=== PATIENT | female | born 1975 | race Caucasian/White ===

== ENCOUNTER 2016-07-01 10:05 | Emergency (ER) | payer MEDICAID, OTHER ==
[~2016-07-01] VITALS: Ht 165.1 cm; Wt 70.0 kg
[~2016-07-01 10:05] MED LIST: IBUP800 PO; PERC5TAB12 PO; PREN0.01; SENN1TAB11 PO; ZOVI200C24
[2016-07-01 10:07] VITALS: BP 181/86; PULSE 15; PULSE 84; RESP 15; TEMP 98.2; O2SAT 99
[2016-07-01 10:20] VITALS: BP 168/93; PULSE 101; PULSE 104; RESP 16; TEMP 98.2; O2SAT 96
[2016-07-01] MEDS ORDERED: SODIUM CHLOR 0.9% 1000 ML INJ 1,000 ML IV SCH (10:21)
[2016-07-01 10:24] LABS: MEAN CORPUSCULAR HGB CONC 36.3 % (32.0-36.0)
--- NOTE | 2016-07-01 10:28 | PD ---
HPI Chief Complaint: Flank/Kidney Pain Time Seen by Provider: 10:11 Travel History International Travel<30 days: No Contact w/Intl Traveler<30days: No Traveled to known affect area: No History of Present Illness HPI 41-year-old female complains of right flank pain and right-sided abdominal pain. Patient states that the pain started about several weeks ago. Patient states that the pain has been intermittent however becomes more constant more severe recently. Patient states that she has intermittent nausea vomiting. Patient states that she has poor appetite for the past few weeks. Patient denies any fever. Patient states that she feeling hot and chills. Patient denies any dysuria or frequency. Patient denies any vaginal discharge. Patient 's on her menstruation period now. Patient states that she has UTI symptom 2 weeks ago and she took [id number] as Azo for that. On a scale of 1-10 the pain is a 9. PFSH Past Medical History Diminished Hearing: No Genitourinary: Yes (UTI) Tetanus Vaccination: Unknown Influenza Vaccination: No ?: Not LMP: 05/2016 : 2 Para: 2 Miscarriage: 0 : 0 Past Surgical History Surgical History: No Previous Surgery Social History Alcohol Use: No Tobacco Use: No Substance Use: No Allergies-Medications (Allergen,Severity, Reaction): Coded Allergies: No Known Allergies (Verified , 07/01/16) Reported Meds & Prescriptions Reported Meds & Active Scripts Active Review of Systems General / Constitutional: Positive: Chills, No: Fever Eyes: No: Visual changes HENT: No: Headaches Cardiovascular: No: Chest Pain or Discomfort Respiratory: No: Shortness of Breath Gastrointestinal: Positive: Nausea, Vomiting, Abdominal Pain Genitourinary: No: Dysuria Musculoskeletal: No: Pain Skin: No Rash Neurologic: No: Weakness Psychiatric: No: Depression Endocrine: No: Polydipsia Hematologic/Lymphatic: No: Easy Bruising Physical Exam Narrative GENERAL: Well-nourished, well-developed patient. SKIN: Warm and dry. HEAD: Normocephalic. EYES: No scleral icterus. No injection or drainage. NECK: Supple, trachea midline. No JVD or lymphadenopathy. CARDIOVASCULAR: Regular rate and rhythm without murmurs, gallops, or rubs. RESPIRATORY: Breath sounds equal bilaterally. No accessory muscle use. GASTROINTESTINAL: Abdomen soft, nondistended. Patient has moderate tenderness on palpation right upper quadrant, right mid abdomen and right low quadrant of the abdomen. No rebound tenderness. No mass. MUSCULOSKELETAL: No cyanosis, or edema. BACK: Patient has moderate tenderness on palpation right mid lumbar area, without obvious deformity. No CVA tenderness. Neurologic exam normal. Data Data Last Documented VS Vital Signs Date Time Temp Pulse Resp B/P Pulse Ox O2 Delivery O2 Flow Rate FiO2 07/01/16 10:20 98.2 104 16 168/93 96 Room Air Orders Complete Blood Count With Diff (07/01/16 10:21) Comprehensive Metabolic Panel (07/01/16 10:21) Lipase (07/01/16 10:21) Prothrombin Time / Inr (Pt) (07/01/16 10:21) Act Partial Throm Time (Ptt) (07/01/16 10:21) Urinalysis - C+S If Indicated (07/01/16 10:21) Ct Abd/Pel W Iv Contrast(Rout) (07/01/16 10:21) Iv Access Insert/Monitor (07/01/16 10:21) Ecg Monitoring (07/01/16 10:21) Oximetry (07/01/16 10:21) Morphine Inj (Morphine Inj) (07/01/16 10:30) Ondansetron Inj (Zofran Inj) (07/01/16 10:30) Pantoprazole Inj (Protonix Inj) (07/01/16 10:30) Sodium Chlor 0.9% 1000 Ml Inj (Ns 1000 M (07/01/16 10:21) Sodium Chloride 0.9% Flush (Ns Flush) (07/01/16 10:30) Ed Urine Pregnancytest Poc (07/01/16 10:21) Iohexol 350 Inj (Omnipaque 350 Inj) (07/01/16 11:59) Labs Laboratory Tests Test 07/01/16 07/01/16 10:25 11:15 White Blood Count 10.6 TH/MM3 Red Blood Count 4.80 MIL/MM3 Hemoglobin 14.5 GM/DL Hematocrit 40.1 % Mean Corpuscular Volume 83.5 FL Mean Corpuscular Hemoglobin 30.3 PG Mean Corpuscular Hemoglobin 36.3 % Concent Red Cell Distribution Width 14.1 % Platelet Count 306 TH/MM3 Mean Platelet Volume 8.1 FL Neutrophils (%) (Auto) 80.4 % Lymphocytes (%) (Auto) 14.6 % Monocytes (%) (Auto) 4.7 % Eosinophils (%) (Auto) 0.0 % Basophils (%) (Auto) 0.3 % Neutrophils # (Auto) 8.5 TH/MM3 Lymphocytes # (Auto) 1.5 TH/MM3 Monocytes # (Auto) 0.5 TH/MM3 Eosinophils # (Auto) 0.0 TH/MM3 Basophils # (Auto) 0.0 TH/MM3 CBC Comment AUTO DIFF Differential Comment AUTO DIFF CONFIRMED Prothrombin Time 11.4 SEC Prothromb Time International 1.0 RATIO Ratio Activated Partial 25.5 SEC Thromboplast Time Sodium Level 137 MEQ/L Potassium Level 3.7 MEQ/L Chloride Level 102 MEQ/L Carbon Dioxide Level 23.6 MEQ/L Anion Gap 11 MEQ/L Blood Urea Nitrogen 14 MG/DL Creatinine 0.91 MG/DL Estimat Glomerular Filtration 68 ML/MIN Rate Random Glucose 98 MG/DL Calcium Level 9.0 MG/DL Total Bilirubin 0.6 MG/DL Aspartate Amino Transf 7 U/L (AST/SGOT) Alanine Aminotransferase 13 U/L (ALT/SGPT) Alkaline Phosphatase 70 U/L Total Protein 8.3 GM/DL Albumin 4.5 GM/DL Lipase 94 U/L Urine Color LIGHT-YELLOW Urine Turbidity CLEAR Urine pH 5.5 Urine Specific [place] 1.005 Urine Protein TRACE mg/dL Urine Glucose (UA) NEG mg/dL Urine Ketones 40 mg/dL Urine Occult Blood MOD Urine Nitrite NEG Urine Bilirubin NEG Urine Urobilinogen LESS THAN 2.0 MG/DL Urine Leukocyte Esterase MOD Urine RBC 2 /hpf Urine WBC 8 /hpf Urine Squamous Epithelial 1 /hpf Cells Urine Mucus FEW /lpf Microscopic Urinalysis Comment CULT NOT INDICATED MDM Medical Decision Making Medical Screen Exam Complete: Yes Emergency Medical Condition: Yes Interpretation(s) 12:10 PM. CBC within normal limit. CMP within normal limit. UA positive for 8 WBC. 12:39 PM. Last Impressions Abdomen/Pelvis CT 07/01/16 1021 Signed Impressions: Service Date/Time: Friday, July 01, 2016 11:41 - CONCLUSION: 1. Hepatic hemangioma. 2. 13 mm calculus in the right renal pelvis with uroepithelial thickening likely inflammatory change from calculus. No significant obstruction. 3. Punctate nonobstructive calculus lower [place] right kidney measures 2 mm. Rory Farr MD Differential Diagnosis Differential diagnosis including musculoskeletal, cholecystitis, pancreatitis, colitis, UTI, pyelonephritis, nephrolithiasis, ovarian cyst, ovarian torsion, ectopic , appendicitis. Narrative Course 41-year-old female with right low back pain, right-sided abdominal pain. Normal saline solution 1 25 cc an hour. Morphine 2 mg IV. Zofran 4 mg IV. Protonix 40 mg IV. Diagnosis Primary Impression: Nephrolithiasis Patient Instructions: General Instructions Additional Instructions: Take medications as directed. Follow-up with urologist. Return if intractable pain, fever, persistent vomiting. Med/Other Pt SpecificInfo: Prescription(s) given Scripts Sulfamethoxazole-Trimethoprim (Bactrim DS)800-160 Mg Tab1 Tab PO BID #14 TAB Prov:Henry Villarreal MD 07/01/16 Tamsulosin (Flomax)0.4 Mg Cap0.4 Mg PO HS #14 CAP Ref 0 Prov:Henry Villarreal MD 07/01/16 Hydrocodone-Acetaminophen ([place])5-325 mg Tab1 Tab PO Q6H PRN (PAIN) #30 TAB Prov:Henry Villarreal MD 07/01/16 Disposition: 01 DISCHARGE HOME Condition: Stable Henry Villarreal MD Jul 01, 2016 10:28
[2016-07-01] MEDS ORDERED: PANTOPRAZOLE SODIUM 40 MG VIAL IVP ONE (10:30)
[2016-07-01] MEDS ORDERED: SODIUM CHLORIDE 0.9% FLUSH 5 ML FLUSH IVF PRN (10:30)
[2016-07-01] MEDS ORDERED: MORPHINE SULFATE 4 MG/ML INJ IV PUSH ONE (10:30)
[2016-07-01] MEDS ORDERED: ONDANSETRON HCL 4 MG/2 ML VIAL IVP ONE (10:30)
[2016-07-01 10:46] LABS: AUTOMATED NEUTROPHIL # 8.5 TH/MM3 (1.8-7.7); BASOPHIL % 0.3 % (0.0-2.0); HEMATOCRIT 40.1 % (35.0-46.0); LYMPH % 14.6 % (9.0-44.0); LYMPHOCYTE # 1.5 TH/MM3 (1.0-4.8); MEAN CELL VOLUME 83.5 FL (80.0-100.0); MEAN CORPUSCULAR HEMOGLOBIN 30.3 PG (27.0-34.0); MONO % 4.7 % (0.0-8.0); NEUT % 80.4 % (16.0-70.0); PLATELET COUNT 306 TH/MM3 (150-450); RED CELL DISTRIBUTION WIDTH 14.1 % (11.6-17.2); WHITE BLOOD COUNT 10.6 TH/MM3 (4.0-11.0)
[2016-07-01 10:48] LABS: HEMO FLAGS AUTO DIFF
[2016-07-01 10:52] LABS: APTT (PATIENT) 25.5 SEC (24.3-30.1); PROTHROMBIN TIME - PATIENT 11.4 SEC (9.8-11.6)
[2016-07-01 11:04] LABS: ALT (GPT) 13 U/L (10-53); ANION GAP 11 MEQ/L (5-15); AST (GOT) 7 U/L (15-37); BICARBONATE 23.6 MEQ/L (21.0-32.0); BLOOD UREA NITROGEN 14 MG/DL (7-18); CHLORIDE 102 MEQ/L (98-107); GLOMERULAR FILTRATION RATE 68 ML/MIN (>89); POTASSIUM 3.7 MEQ/L (3.5-5.1); SODIUM (NA) 137 MEQ/L (136-145)
[2016-07-01 11:06] LABS: ALKALINE PHOSPHATASE 70 U/L (45-117); TOTAL BILIRUBIN ADULT 0.6 MG/DL (0.2-1.0)
[2016-07-01 11:16] LABS: SCAN/DIFF AUTO DIFF CONFIRMED
[2016-07-01] MEDS ORDERED: IOHEXOL 350 MG/ML 10 ML VIAL (for RAD DIAG) IV ONE (11:59)
[2016-07-01 12:03] LABS: BLOOD, URINE MOD (NEG); GLUCOSE,URINE NEG (NEG); KETONE, URINE 40 mg/dL (NEG); MUCUS URINE FEW /lpf (OCC); NITRITE,URINE NEG (NEG); PH, URINE 5.5 (5.0-8.5); SQUAMOUS EPITHELIAL CELL URINE 1 /hpf (0-5); URINE COLOR LIGHT-YELLOW (YELLW/STRAW)
[2016-07-01 12:05] LABS: COMMENT (UR) CULT NOT INDICATED; CULTURE IF INDICATED CULT NOT INDICATED
--- NOTE | 2016-07-01 12:21 | RADRPT ---
EXAM DATE/TIME: 07/01/2016 11:41 [facility] COMPARISON: No previous studies available for comparison. INDICATIONS : Right upper abdominal pain that radiates to the right flank. IV CONTRAST: 90 cc Omnipaque 350 (iohexol) IV ORAL CONTRAST: No oral contrast ingested. RADIATION DOSE: 9.96 CTDIvol (mGy) MEDICAL HISTORY : None SURGICAL HISTORY : None. ENCOUNTER: Initial ACUITY: 2 weeks PAIN SCALE: 6/10 LOCATION: Right upper quadrant TECHNIQUE: Volumetric scanning of the abdomen and pelvis was performed. Using automated exposure control and ad justment of the mA and/or kV according to patient size, radiation dose was kept as low as reasonably achievable to obtain optimal diagnostic quality images. FINDINGS: LOWER LUNGS: The visualized lower lungs are clear. LIVER: Homogeneous density without dilation of the biliary tree. No calcified gallstones. Peripheral enhanc ing lesion in the liver measuring 3.4 cm likely meningioma. SPLEEN: Normal size without lesion. PANCREAS: Within normal limits. KIDNEYS: Normal in size and shape. There is no mass or hydronephrosis. A 13 mm calculus involving the right r enal pelvis. There is uroepithelial thickening in the renal pelvis. Punctate nonspecific calculus low er [place] right kidney measures 2 mm. ADRENAL GLANDS: Within normal limits. VASCULAR: There is no aortic aneurysm. BOWEL/MESENTERY: The stomach, small bowel, and colon demonstrate no acute abnormality. There is no free intraperitone al air or fluid. Appendix normal. ABDOMINAL WALL: Within normal limits. RETROPERITONEUM: There is no lymphadenopathy. BLADDER: No wall thickening or mass. REPRODUCTIVE: Within normal limits. INGUINAL: There is no lymphadenopathy or hernia. MUSCULOSKELETAL: Within normal limits for patient age. CONCLUSION: 1. Hepatic hemangioma. 2. 13 mm calculus in the right renal pelvis with uroepithelial thickening likely inflammatory change from calculus. No significant obstruction. 3. Punctate nonobstructive calculus lower Pole right kidney measures 2 mm. Rory Farr MD on July 01, 2016 at 12:17 Board Certified Radiologist. This report was verified electronically.
[2016-07-01] MEDS ORDERED: TAMS5CAP PO (12:55)
[2016-07-01] MEDS ORDERED: NORC5TAB PO (12:55)
[2016-07-01] MEDS ORDERED: BACT800T5 PO (12:56)
[2016-08-16] MEDS ORDERED: HYDR-3533 PO (13:56)
[2016-08-16] MEDS ORDERED: ZOFR4TAB3 SL (13:56)
[2016-09-05] MEDS ORDERED: ZOFR4TAB3 SL (15:33)
[2016-09-05] MEDS ORDERED: HYDR-3533 PO (15:33)
[2016-09-14] MEDS ORDERED: HYDR-3533 PO (16:06)
== END 2016-07-01 13:01 | disposition home or self-care (01) ==
LOC: NEPA 10:05
DX: N20.0 Calculus of kidney (principal)
CPT/HCPCS: 74177; 80053; 81001; 83690; 84703; 85025; 85610; 85730; 96361; 96374; 96375; 99284; C9113; J2270; J2405; J7030; Q9967

== ENCOUNTER 2016-07-19 10:08 | Emergency (ER) | payer MEDICAID, OTHER ==
[~2016-07-19] VITALS: Ht 165.1 cm; Wt 68.2 kg
[~2016-07-19 10:08] MED LIST changes: +BACT800T5 PO; -IBUP800 PO; +NORC5TAB PO; -PERC5TAB12 PO; -PREN0.01; -SENN1TAB11 PO; +TAMS5CAP PO; -ZOVI200C24
[2016-07-19 10:11] VITALS: BP 156/88; PULSE 96; RESP 16; TEMP 97.8; O2SAT 97
[2016-07-19] MEDS ORDERED: KETOROLAC TROMETHAMINE 30 MG/ML (IVP) VIAL IVP ONE (11:00)
[2016-07-19] MEDS ORDERED: SODIUM CHLORIDE 0.9% FLUSH 5 ML FLUSH IVF PRN (11:00)
[2016-07-19] MEDS ORDERED: MORPHINE SULFATE 4 MG/ML INJ IM ONE (11:00)
[2016-07-19] MEDS ORDERED: ONDANSETRON HCL 4 MG/2 ML VIAL IV PUSH ONE (11:00)
[2016-07-19 11:05] VITALS: BP 130/87; PULSE 79; RESP 16; O2SAT 100
[2016-07-19 11:18] LABS: AUTOMATED NEUTROPHIL # 6.5 TH/MM3 (1.8-7.7); BASOPHIL # 0.1 TH/MM3 (0-0.2); BASOPHIL % 0.8 % (0.0-2.0); EOSINOPHIL % 0.5 % (0.0-4.0); HEMATOCRIT 41.2 % (35.0-46.0); HEMO FLAGS DIFF FINAL; LYMPH % 24.2 % (9.0-44.0); LYMPHOCYTE # 2.3 TH/MM3 (1.0-4.8); MEAN CELL VOLUME 84.6 FL (80.0-100.0); MEAN CORPUSCULAR HEMOGLOBIN 28.7 PG (27.0-34.0); MEAN CORPUSCULAR HGB CONC 33.9 % (32.0-36.0); NEUT % 68.5 % (16.0-70.0); PLATELET COUNT 298 TH/MM3 (150-450); RED BLOOD COUNT 4.88 MIL/MM3 (4.00-5.30); WHITE BLOOD COUNT 9.5 TH/MM3 (4.0-11.0)
[2016-07-19 11:19] LABS: BACTERIA, URINE RARE /hpf; BLOOD, URINE SMALL (NEG); COMMENT (UR) CULT NOT INDICATED; CULTURE IF INDICATED CULT NOT INDICATED; GLUCOSE,URINE NEG (NEG); KETONE, URINE 10 mg/dL (NEG); NITRITE,URINE NEG (NEG); SQUAMOUS EPITHELIAL CELL URINE 3 /hpf (0-5); URINE COLOR LIGHT-YELLOW (YELLW/STRAW)
[2016-07-19 11:35] LABS: ANION GAP 8 MEQ/L (5-15); AST (GOT) 12 U/L (15-37); BICARBONATE 25.7 MEQ/L (21.0-32.0); BLOOD UREA NITROGEN 8 MG/DL (7-18); CHLORIDE 101 MEQ/L (98-107); GLOMERULAR FILTRATION RATE 59 ML/MIN (>89); POTASSIUM 3.5 MEQ/L (3.5-5.1); SODIUM (NA) 135 MEQ/L (136-145)
[2016-07-19 11:40] LABS: ALKALINE PHOSPHATASE 79 U/L (45-117); ALT (GPT) 24 U/L (10-53); BETA HCG QUANT LESS THAN 1 MIU/ML (0-5); TOTAL BILIRUBIN ADULT 0.5 MG/DL (0.2-1.0)
--- NOTE | 2016-07-19 11:55 | RADRPT ---
EXAM DATE/TIME: 07/19/2016 11:15 [facility] COMPARISON: CT ABDOMEN & PELVIS W CONTRAST, July 01, 2016, 11:41. INDICATIONS : Hydronephrosis. MEDICAL HISTORY : UTI. SURGICAL HISTORY : None. ENCOUNTER: Initial ACUITY: 1 week PAIN SCORE: 8/10 LOCATION: Right flank MEASUREMENTS: RIGHT KIDNEY: 10.8 x 4.2 x 4.1 cm LEFT KIDNEY: 10.7 x 4.7 x 4.1 cm FINDINGS: RIGHT KIDNEY: There is a 2.2 cm calculus mid pole region the right renal pelvis with mild hydronephrosis. LEFT KIDNEY: There is mild prominence of collecting system hydronephrosis indeterminate etiology. BLADDER: Within normal limits given the degree of distension. CONCLUSION: 2.2 cm stone in the right renal pelvis. Mild right hydronephrosis and suggestion of mild left hydrone phrosis. Asad Baltazar MD on July 19, 2016 at 11:50 Board Certified Radiologist. This report was verified electronically.
[2016-07-19] MEDS ORDERED: NAPR500 PO (12:19)
[2016-07-19] MEDS ORDERED: ZOFR4TAB3 SL (12:19)
[2016-07-19] MEDS ORDERED: HYDR-3533 PO (12:19)
--- NOTE | 2016-07-19 12:19 | PD ---
HPI Chief Complaint: Flank/Kidney Pain Time Seen by Provider: 10:39 Travel History International Travel<30 days: No Contact w/Intl Traveler<30days: No Traveled to known affect area: No History of Present Illness HPI So 41 year-old woman presents to the emergency department complaining of right sided abdominal pain radiating into the back ongoing for a couple months, worsening over the past several days. She was seen in the emergency department about a month or so ago where she was found to have a large approximately 1.2 cm stone in the right UPJ with some evidence of inflammation around it. She was placed on Bactrim and Flomax. She was recommended to follow-up with urology. She's been calling but they cannot get in for another month or so. She's had intermittent pain since then. She also nausea and vomiting for the past couple nights. She has not had any more fevers or chills like she had prior to her previous ED visit. She otherwise looks well. She is worried because symptoms are ongoing and she doesn't know she can wait for the outpatient follow-up appointment. History Past Medical History Medical History: Denies Significant Hx Tetanus Vaccination: < 5 Years Influenza Vaccination: No LMP: 07/01/16 : 2 Para: 2 Past Surgical History Surgical History: No Previous Surgery Social History Alcohol Use: No Tobacco Use: No Allergies-Medications (Allergen,Severity, Reaction): Coded Allergies: No Known Allergies (Verified , 07/19/16) Reported Meds & Prescriptions Reported Meds & Active Scripts Active No Active Prescriptions or Reported Medications Review of Systems Except as stated in HPI: all other systems reviewed are Neg Physical Exam Narrative GENERAL: Well-appearing 41 year-old woman, no acute distress. SKIN: Warm and dry. HEAD: Atraumatic. Normocephalic. EYES: Pupils equal and round. No scleral icterus. No injection or drainage. ENT: No nasal bleeding or discharge. Mucous membranes pink and moist. NECK: Trachea midline. No JVD. CARDIOVASCULAR: Regular rate and rhythm. No murmur appreciated. RESPIRATORY: No accessory muscle use. Clear to auscultation. Breath sounds equal bilaterally. GASTROINTESTINAL: Abdomen soft, non-tender, nondistended. Hepatic and splenic margins not palpable. Mild right CVA tenderness to percussion. MUSCULOSKELETAL: No obvious deformities. No clubbing. No cyanosis. No edema. NEUROLOGICAL: Awake and alert. No obvious cranial nerve deficits. Motor grossly within normal limits. Normal speech. Data Data Last Documented VS Vital Signs Date Time Temp Pulse Resp B/P Pulse Ox O2 Delivery O2 Flow Rate FiO2 07/19/16 11:05 79 16 130/87 100 Room Air 07/19/16 10:11 97.8 Orders Beta Hcg (Quant/Titer) (07/19/16 10:46) Complete Blood Count With Diff (07/19/16 10:46) Comprehensive Metabolic Panel (07/19/16 10:46) Lipase (07/19/16 10:46) Urinalysis - C+S If Indicated (07/19/16 10:46) Iv Access Insert/Monitor (07/19/16 10:46) Ecg Monitoring (07/19/16 10:46) Oximetry (07/19/16 10:46) Sodium Chloride 0.9% Flush (Ns Flush) (07/19/16 11:00) Us Kidney/Renal/Bladder (07/19/16 ) Ketorolac Inj (Toradol Inj) (07/19/16 11:00) Morphine Inj (Morphine Inj) (07/19/16 11:00) Ondansetron Inj (Zofran Inj) (07/19/16 11:00) Labs Laboratory Tests Test 07/19/16 10:57 White Blood Count 9.5 TH/MM3 Red Blood Count 4.88 MIL/MM3 Hemoglobin 14.0 GM/DL Hematocrit 41.2 % Mean Corpuscular Volume 84.6 FL Mean Corpuscular Hemoglobin 28.7 PG Mean Corpuscular Hemoglobin 33.9 % Concent Red Cell Distribution Width 14.0 % Platelet Count 298 TH/MM3 Mean Platelet Volume 7.9 FL Neutrophils (%) (Auto) 68.5 % Lymphocytes (%) (Auto) 24.2 % Monocytes (%) (Auto) 6.0 % Eosinophils (%) (Auto) 0.5 % Basophils (%) (Auto) 0.8 % Neutrophils # (Auto) 6.5 TH/MM3 Lymphocytes # (Auto) 2.3 TH/MM3 Monocytes # (Auto) 0.6 TH/MM3 Eosinophils # (Auto) 0.0 TH/MM3 Basophils # (Auto) 0.1 TH/MM3 CBC Comment DIFF FINAL Differential Comment Urine Color LIGHT-YELLOW Urine Turbidity CLEAR Urine pH 6.0 Urine Specific [place] 1.002 Urine Protein NEG mg/dL Urine Glucose (UA) NEG mg/dL Urine Ketones 10 mg/dL Urine Occult Blood SMALL Urine Nitrite NEG Urine Bilirubin NEG Urine Urobilinogen LESS THAN 2.0 MG/DL Urine Leukocyte Esterase MOD Urine RBC 1 /hpf Urine WBC 4 /hpf Urine Squamous Epithelial 3 /hpf Cells Urine Bacteria RARE /hpf Microscopic Urinalysis Comment CULT NOT INDICATED Sodium Level 135 MEQ/L Potassium Level 3.5 MEQ/L Chloride Level 101 MEQ/L Carbon Dioxide Level 25.7 MEQ/L Anion Gap 8 MEQ/L Blood Urea Nitrogen 8 MG/DL Creatinine 1.03 MG/DL Estimat Glomerular Filtration 59 ML/MIN Rate Random Glucose 87 MG/DL Calcium Level 9.3 MG/DL Total Bilirubin 0.5 MG/DL Aspartate Amino Transf 12 U/L (AST/SGOT) Alanine Aminotransferase 24 U/L (ALT/SGPT) Alkaline Phosphatase 79 U/L Total Protein 8.8 GM/DL Albumin 4.6 GM/DL Lipase 86 U/L Human Chorionic Gonadotropin, LESS THAN 1 Quant MIU/ML [facility] Medical Decision Making Medical Screen Exam Complete: Yes Emergency Medical Condition: Yes Interpretation(s) LABS: CBC is unremarkable. CMP is unremarkable. HCG negative. Lipase is normal. UA is unremarkable. Differential Diagnosis renal lithiasis, obstruction, ureterolithiasis, kidney injury, other Narrative Course Medical decision making Is a 41 year-old woman presents emergent department a large stone in the right renal pelvis is easily causing intermittent symptoms. Ultrasound doesn't show any evidence of significant obstruction. I spoke with Dr. Abad, urology, will we are in agreement. Patient will follow up as an outpatient. Continue pain control. Return for any intractable pain, fevers or chills, or intractable vomiting. Diagnosis Primary Impression: Nephrolithiasis Additional Instructions: Continue follow-up with urology as scheduled. Take Aleve as prescribed. Use Lortab as needed for severe pain. Use Zofran if needed for nausea or vomiting. Med/Other Pt SpecificInfo: Prescription(s) given Scripts Ondansetron Odt (Zofran Odt)4 Mg Tab4 Mg SL Q8HR PRN (Nausea/Vomiting) #20 TAB May substitute non-ODT form. Prov:Garrett Mitchell MD 07/19/16 Naproxen (Naprosyn)500 Mg [id number] Mg PO BID PRN (PAIN SCALE 1 TO 10) #60 TAB Prov:Garrett Mitchell MD 07/19/16 Hydrocodone-Acetaminophen (Lortab)5-325 Mg Tab1-2 Tab PO Q6H PRN (PAIN) #30 TAB Prov:Garrett Mitchell MD 07/19/16 Disposition: 01 DISCHARGE HOME Condition: Stable Garrett Mitchell MD Jul 19, 2016 12:19
[2016-07-19 12:38] VITALS: BP 124/64; PULSE 71; RESP 18; O2SAT 100
[2016-07-19 12:41] VITALS: BP 124/64; PULSE 71; RESP 18; O2SAT 100
[2016-07-19 12:42] VITALS: BP 124/64
[2016-08-16] MEDS ORDERED: HYDR-3533 PO (13:56)
[2016-08-16] MEDS ORDERED: ZOFR4TAB3 SL (13:56)
[2016-09-05] MEDS ORDERED: ZOFR4TAB3 SL (15:33)
[2016-09-05] MEDS ORDERED: HYDR-3533 PO (15:33)
[2016-09-14] MEDS ORDERED: HYDR-3533 PO (16:06)
== END 2016-07-19 13:37 | disposition home or self-care (01) ==
LOC: NEPC 10:08
DX: N20.0 Calculus of kidney (principal)
CPT/HCPCS: 76775; 80053; 81001; 83690; 84702; 85025; 96372; 96374; 96375; 99284; J1885; J2270; J2405

== ENCOUNTER 2016-08-06 09:45 | Emergency (ER) | payer MEDICAID, OTHER ==
[~2016-08-06] VITALS: Ht 165.1 cm; Wt 68.0 kg
[~2016-08-06 09:45] MED LIST changes: -BACT800T5 PO; +HYDR-3533 PO; +NAPR500 PO; -NORC5TAB PO; -TAMS5CAP PO; +ZOFR4TAB3 SL
[2016-08-06 09:46] VITALS: BP 140/84; PULSE 84; RESP 20; TEMP 98; O2SAT 98
[2016-08-06 10:23] VITALS: RESP 17; O2SAT 99
[2016-08-06] MEDS ORDERED: SODIUM CHLORIDE 0.9% FLUSH 5 ML FLUSH IVF PRN (10:30)
[2016-08-06] MEDS ORDERED: ONDANSETRON HCL 4 MG/2 ML VIAL IVP ONE (10:30)
[2016-08-06] MEDS ORDERED: MORPHINE SULFATE 4 MG/ML INJ IV PUSH ONE (10:30)
[2016-08-06] MEDS ORDERED: KETOROLAC TROMETHAMINE 30 MG/ML (IVP) VIAL IVP ONE (10:30)
[2016-08-06 10:33] LABS: BLOOD, URINE LARGE (NEG); COMMENT (UR) CULTURE INDICATED; CULTURE IF INDICATED CULTURE INDICATED; GLUCOSE,URINE NEG (NEG); KETONE, URINE NEG (NEG); MUCUS URINE FEW /lpf (OCC); NITRITE,URINE NEG (NEG); PH, URINE 6.5 (5.0-8.5); SQUAMOUS EPITHELIAL CELL URINE 1 /hpf (0-5); URINE COLOR LIGHT-YELLOW (YELLW/STRAW)
--- NOTE | 2016-08-06 10:39 | PD ---
HPI Chief Complaint: Flank/Kidney Pain Time Seen by Provider: 10:08 Travel History International Travel<30 days: No Contact w/Intl Traveler<30days: No Traveled to known affect area: No History of Present Illness HPI Patient is a 41-year-old female who presents emergency department with complaint of right flank pain. Patient states that she has known 13-15 mm stone within the right kidney. She is scheduled to see [place] [facility] but not until the end of July. States that she intermittently has some right sided flank pain that has flared up over the course the last 12-24 hour. This is primarily in the right flank and radiates slightly into the right upper abdomen but not into the groin. She denies any significant urinary symptoms of dysuria , urgency, frequency or hematuria but states that it is difficult to tell if she is currently menstruating. Patient notes nausea but no vomiting. She has been taking Aleve, Daisy at home with some mild improvement of her symptoms. PFSH Past Medical History Diminished Hearing: No Genitourinary: Yes (UTI) Kidney Stones: Yes Tetanus Vaccination: < 5 Years Influenza Vaccination: No ?: Not LMP: 07/26/16 : 2 Para: 2 Miscarriage: 0 : 0 Social History Alcohol Use: No Tobacco Use: No Substance Use: No Allergies-Medications (Allergen,Severity, Reaction): Coded Allergies: No Known Allergies (Verified , 08/06/16) Reported Meds & Prescriptions Reported Meds & Active Scripts Active Zofran Odt (Ondansetron Odt) 4 Mg Tab 4 Mg SL Q8HR PRN May substitute non-ODT form. Naprosyn (Naproxen) 500 Mg Tab 500 Mg PO BID PRN Lortab (Hydrocodone-Acetaminophen) 5-325 Mg Tab 1-2 Tab PO Q6H PRN Review of Systems Except as stated in HPI: all other systems reviewed are Neg Physical Exam Narrative GENERAL: Middle-aged female in no acute distress SKIN: Warm and dry. HEAD: Normocephalic. EYES: No scleral icterus. No injection or drainage. ENT: Mucous membranes pink and moist. NECK: Supple CARDIOVASCULAR: Regular rate and rhythm. No murmur appreciated. RESPIRATORY: No accessory muscle use. Clear to auscultation. Breath sounds equal bilaterally. GASTROINTESTINAL: Abdomen soft, non-tender, nondistended. Right sided flank pain reproducible on exam. MUSCULOSKELETAL: No obvious deformities. No edema. NEUROLOGICAL: Awake and alert. Motor grossly within normal limits. Normal speech. PSYCHIATRIC: Appropriate mood and affect; insight and judgment normal. Data Data Last Documented VS Vital Signs Date Time Temp Pulse Resp B/P Pulse Ox O2 Delivery O2 Flow Rate FiO2 08/06/16 11:28 17 08/06/16 11:20 97.8 88 126/71 99 Room Air Orders Urinalysis - C+S If Indicated (08/06/16 10:08) Us Kidney/Renal/Bladder (08/06/16 ) Iv Access Insert/Monitor (08/06/16 10:22) Oximetry (08/06/16 10:22) Morphine Inj (Morphine Inj) (08/06/16 10:30) Ondansetron Inj (Zofran Inj) (08/06/16 10:30) Sodium Chloride 0.9% Flush (Ns Flush) (08/06/16 10:30) Ketorolac Inj (Toradol Inj) (08/06/16 10:30) Urine Culture (08/06/16 10:15) Labs Laboratory Tests Test 08/06/16 10:15 Urine Color LIGHT-YELLOW Urine Turbidity CLEAR Urine pH 6.5 Urine Specific [place] 1.006 Urine Protein 30 mg/dL Urine Glucose (UA) NEG mg/dL Urine Ketones NEG mg/dL Urine Occult Blood LARGE Urine Nitrite NEG Urine Bilirubin NEG Urine Urobilinogen LESS THAN 2.0 MG/DL Urine Leukocyte Esterase LARGE Urine RBC 8 /hpf Urine WBC 13 /hpf Urine Squamous Epithelial 1 /hpf Cells Urine Mucus FEW /lpf Microscopic Urinalysis Comment CULTURE INDICATED MDM Medical Decision Making Medical Screen Exam Complete: Yes Emergency Medical Condition: Yes Medical Record Reviewed: Yes Differential Diagnosis 41-year-old female with known right kidney stone who presents the emergency department complaint of right flank pain. Differential includes symptomatic renal colic, ureterolithiasis, hydronephrosis. Narrative Course Patient placed on monitor. Given morphine, Zofran, Toradol for symptoms. Urinalysis showed small amount of blood and white cells but contaminated urine specimen. Ultrasound of the kidney shows known stone but no evidence of hydronephrosis. Patient felt improved and will be discharged home with outpatient neurology follow-up. Diagnosis Primary Impression: Nephrolithiasis Referrals: Urologist 1 day Additional Instructions: Medications as needed. Follow-up with urologist by phone tomorrow as discussed. Med/Other Pt SpecificInfo: Prescription(s) given Scripts Ondansetron Odt (Zofran Odt)4 Mg Tab4 Mg SL Q8HR PRN (Nausea/Vomiting) #20 TAB May substitute non-ODT form. Prov:Analy Olvera MD 08/06/16 Hydrocodone-Acetaminophen (Lortab)5-325 Mg Tab1-2 Tab PO Q6H PRN (PAIN) #30 TAB Prov:Analy Olvera MD 08/06/16 Disposition: 01 DISCHARGE HOME Condition: Stable Analy Olvera MD Aug 06, 2016 10:39
[2016-08-06 11:20] VITALS: BP 126/71; PULSE 88; RESP 17; TEMP 97.8; O2SAT 99
[2016-08-06 11:28] VITALS: RESP 17
--- NOTE | 2016-08-06 12:06 | RADRPT ---
EXAM DATE/TIME: 08/06/2016 11:32 [facility] COMPARISON: CT ABDOMEN & PELVIS W CONTRAST, July 01, 2016, 11:41. US KIDNEY/RENAL/BLADDER, July 19, 2016 , 11:15. INDICATIONS : Flank pain. MEDICAL HISTORY : Renal calculi. UTI. SURGICAL HISTORY : None. ENCOUNTER: Subsequent ACUITY: 1 month PAIN SCORE: 3/10 LOCATION: Bilateral flank MEASUREMENTS: RIGHT KIDNEY: 11.1 x 4.9 x 4.3 cm LEFT KIDNEY: 10.5 x 5.1 x 4.9 cm FINDINGS: RIGHT KIDNEY: Renal cortex is normal in thickness and echotexture. There is a 1.7 cm stone seen in the right renal pelvis area. No hydronephrosis or mass. LEFT KIDNEY: Renal cortex is normal in thickness and echotexture. There is mild fullness of the left renal pelvis . No shadowing stone or mass is seen. BLADDER: Within normal limits given the degree of distension. CONCLUSION: 1. 1.7 cm right renal stone seen in the right renal pelvis. This was present on the prior exams. 2. Mild fullness of the left renal pelvis. Alfa Koroma MD on August 06, 2016 at 12:01 Board Certified Radiologist. This report was verified electronically.
[2016-08-06] MEDS ORDERED: HYDR-3533 PO (12:29)
[2016-08-06] MEDS ORDERED: ZOFR4TAB3 SL (12:29)
[2016-08-06 12:43] VITALS: BP 130/77; TEMP 97.8
[2016-08-16] MEDS ORDERED: ZOFR4TAB3 SL (13:56)
[2016-08-16] MEDS ORDERED: HYDR-3533 PO (13:56)
[2016-09-05] MEDS ORDERED: HYDR-3533 PO (15:33)
[2016-09-05] MEDS ORDERED: ZOFR4TAB3 SL (15:33)
[2016-09-14] MEDS ORDERED: HYDR-3533 PO (16:06)
== END 2016-08-06 12:35 | disposition home or self-care (01) ==
LOC: NEPE 09:45
DX: N20.0 Calculus of kidney (principal); R11.0 Nausea; Z87.448 Personal history of other diseases of urinary system
CPT/HCPCS: 76775; 81001; 87086; 96374; 96375; 99284; J1885; J2270; J2405

== ENCOUNTER → 2016-08-23 | Day surgery (SDC) | payer MEDICAID, OTHER ==
[~2016-08-23] VITALS: Ht 165.1 cm; Wt 66.2 kg
[~2016-08-23] MED LIST changes: +*morphine SULFATE 8 MG/ML PERIprocedure ONLY ONE; +ACETAMINOPHEN/HYDROcodone 325 MG/5 MG TAB PO PRN; +DEXAMETHASONE SOD PHOS 4 MG/ML VIAL ONE; +DO NOT ADM ANY ANTICOAGULANT DRUGS XX PRN; +FAMOTIDINE 20 MG/2 ML VIAL ONE; +HYDROmorphone HCL PF 1 MG/ML VIAL ONE; +INSULIN HUMAN REGULAR 1,000 UNITS/10 ML VIAL SQ PRN; +IOHEXOL 350 MG/ML 50 ML BTL (for RAD DIAG) OTHER ONE; +LACTATED RINGER'S 1000 ML IV SCH; +METOCLOPRAMIDE HCL 10 MG/2 ML VIAL ONE; +METOPROLOL TARTRATE 25 MG TAB PO PRN; +MIDAZOLAM HCL 2 MG/2 ML VIAL ONE; +MORPHINE SULFATE 4 MG/ML INJ IV PRN; +MORPHINE SULFATE 4 MG/ML INJ ONE; +MORPHINE SULFATE 8 MG/ML INJ ONE; +ONDANSETRON HCL 4 MG/2 ML VIAL IV PUSH ONE; +ONDANSETRON HCL 4 MG/2 ML VIAL IV PUSH PRN; +PROPOFOL 200 MG/20 ML AMP IV ONE; +SODIUM CHLORID 0.9% 500 ML IV SCH; +SODIUM CHLORIDE 0.9% INJ 100 ML ONE; +ceFAZolin 1,000 MG/NS 100 ML IV SCH; +ceFAZolin INJ 1,000 MG VIAL ONE
[2016-08-23 07:34] VITALS: BP 116/87; PULSE 85; RESP 20; TEMP 98.1; O2SAT 100
[2016-08-23 07:40] LABS: AUTOMATED NEUTROPHIL # 3.5 TH/MM3 (1.8-7.7); BASOPHIL % 0.6 % (0.0-2.0); EOSINOPHIL # 0.1 TH/MM3 (0-0.4); HEMATOCRIT 38.4 % (35.0-46.0); HEMO FLAGS DIFF FINAL; LYMPH % 27.7 % (9.0-44.0); LYMPHOCYTE # 1.5 TH/MM3 (1.0-4.8); MEAN CELL VOLUME 85.2 FL (80.0-100.0); MEAN CORPUSCULAR HEMOGLOBIN 29.4 PG (27.0-34.0); MEAN CORPUSCULAR HGB CONC 34.5 % (32.0-36.0); MONO % 6.4 % (0.0-8.0); NEUT % 64.3 % (16.0-70.0); PLATELET COUNT 207 TH/MM3 (150-450); RED BLOOD COUNT 4.51 MIL/MM3 (4.00-5.30); RED CELL DISTRIBUTION WIDTH 13.9 % (11.6-17.2); WHITE BLOOD COUNT 5.4 TH/MM3 (4.0-11.0)
--- NOTE | 2016-08-23 08:17 | RADRPT ---
EXAM DATE/TIME: 08/23/2016 07:29 [facility] COMPARISON: CT ABDOMEN & PELVIS W CONTRAST, July 01, 2016, 11:41. INDICATIONS : Pre-op Lithotripsy. Right kidney stone. MEDICAL HISTORY : None. SURGICAL HISTORY : None. ENCOUNTER: Initial ACUITY: 1 day PAIN SCORE: 5/10 LOCATION: Right Abdomen. FINDINGS: Supine view of the abdomen was performed. The abdominal bowel gas pattern is normal. No abnormal ma sses or organomegaly is seen. A 13 mm right renal stone is again seen projecting over the region of t he renal pelvis. This is unchanged in the prior CT. The osseous structures are unremarkable. CONCLUSION: 1. Normal bowel gas pattern. 2. 13 mm renal stone projecting over the renal pelvis on the right. Jasvir Wilkinson Jr., MD on August 23, 2016 at 8:14 Board Certified Radiologist. This report was verified electronically.
--- NOTE | 2016-08-23 10:17 | PD.OP ---
Operative Report Date of Surgery: Aug 23, 2016 Preoperative Diagnosis: 13mm Right UPJ stone with hydronephrosis Postoperative Diagnosis: Same Procedure: Cystoscopy with Right RPG and Right JJ stent insertion Anesthesia: General LMA Surgeon: Preston Tay [employer](s): none Resident Surgeon: none Operation and Findings: This is a 41-year-old female presents with findings of a 13 mm right UPJ stone. Patient is scheduled undergo cystoscopy right double-J stent insertion followed by right extracoperal shockwave lithotripsy. Risk and benefits were discussed preoperatively and she was willing to proceed. Patient was brought to the operating room and identified by myself as Ivan Cabrera. She was placed in dorsal lithotomy position, prepped and draped in usual sterile fashion , received preprocedure antibiotics, and general LMA anesthesia was administered. A 22 Yoruba cystoscope was inserted in the bladder starr cystoscopy did not reveal any abnormalities. A 5 Yoruba opening catheter was inserted into the right ureteral orifice and retrograde study was performed. Large stone was identified within the right renal pelvis. A 0.35 sensor wire was then passed through the open-ended catheter and the catheter was removed. A 6 Yoruba 24 cm right double-J stent was then placed with a good curl in the kidney and bladder. The bladder was evacuated. She was left in this position and then ESWL therapy commenced. She received a total of 2500 shocks with good fragmentation of the stone. Stone appeared to be absent at the completion of the procedure. The stent was in good position. She tolerated procedure well and was extubated and transferred to recovery stable condition. She'll follow- up in 2 weeks and obtain a KUB x-ray prior to her office visit. Cystoscopy with stent removal will be performed at that time. Preston Tay DO Aug 23, 2016 10:17
[2016-08-23 12:30] VITALS: BP 149/85; PULSE 75; RESP 16; TEMP 97.3; O2SAT 97
== END | disposition home or self-care (01) ==
LOC: HSDC 06:33
PROVIDERS: ATTEND Urology
DX: N20.1 Calculus of ureter (principal); N20.0 Calculus of kidney
CPT/HCPCS: 00910; 50590; 52332; 74000; 85025; C1769; C2617; J0690; J1100; J1170; J2250; J2270; J2405; J2765; J3010; J7120; Q9967